=== PATIENT | female | born 1995 | race African-American/Black ===

== ENCOUNTER 2020-11-16 09:56 | Emergency (ER) | payer SELFPAY | END 2020-11-16 14:33 | disposition left against medical advice (07) | LOC: CSHERS 09:56 | DX: Z53.21 Procedure and treatment not carried out due to patient leaving prior to being seen by health care provider (principal) ==

== ENCOUNTER 2022-11-09 04:52 | Emergency (ER) | payer SELFPAY | END 2022-11-09 06:11 | disposition home or self-care (01) | LOC: CSHERS 04:52 | DX: R10.13 Epigastric pain (principal) | CPT/HCPCS: 99283 ==

== ENCOUNTER 2022-11-15 06:34 | Emergency (ER) | payer SELFPAY | END 2022-11-15 08:13 | disposition home or self-care (01) | LOC: CSHERS 06:34 | DX: S93.601A Unspecified sprain of right foot, initial encounter (principal); W18.49XA Other slipping, tripping and stumbling without falling, initial encounter ==

== ENCOUNTER 2023-10-07 17:16 | Emergency (ER) | payer SELFPAY | END 2023-10-07 18:32 | disposition home or self-care (01) | LOC: CSHERS 17:16 | DX: J32.9 Chronic sinusitis, unspecified (principal); B97.89 Other viral agents as the cause of diseases classified elsewhere | CPT/HCPCS: 99283 ==

== ENCOUNTER 2023-10-22 04:08 | Emergency (ER) | payer SELFPAY | END 2023-10-22 05:01 | disposition home or self-care (01) | LOC: CSHERS 04:08 | DX: K04.7 Periapical abscess without sinus (principal); K02.9 Dental caries, unspecified | CPT/HCPCS: 99282 ==